=== PATIENT | female | born 1940 | race Caucasian/White ===

== ENCOUNTER → 2016-05-17 | Outpatient (CLI) | payer BC ==
[~2016-05-17] MED LIST: CYMBALTA30 MG; HYDROXYCHLOROQ200 MG; PREMARIN0.3 MG; SYNTHROID0.137 MG PO; TRAMADOL HYDRO200 MG; TRAZODONE50 MG
== END ==
LOC: LAB 13:59
DX: I15.8 Other secondary hypertension (principal)

== ENCOUNTER → 2016-07-25 | Outpatient (CLI) | payer BC ==
[2011-12-04 14:00] VITALS: BP 187/83
== END ==
LOC: LAB 15:33
DX: G25.0 Essential tremor (principal); I15.0 Renovascular hypertension; M34.1 CR(E)ST syndrome; R20.2 Paresthesia of skin; E03.4 Atrophy of thyroid (acquired)

== ENCOUNTER → 2016-11-18 | Outpatient (CLI) | payer BC ==
[2011-12-04 14:00] VITALS: BP 187/83
== END ==
LOC: LAB 09:48
DX: I73.00 Raynaud's syndrome without gangrene (principal); E87.6 Hypokalemia

== ENCOUNTER → 2016-12-11 | Outpatient (CLI) | payer BC ==
[2011-12-04 14:00] VITALS: BP 187/83
== END ==
LOC: RAD 13:43
DX: M19.011 Primary osteoarthritis, right shoulder (principal); M19.012 Primary osteoarthritis, left shoulder

== ENCOUNTER → 2017-01-30 | Outpatient (CLI) | payer BC ==
[2011-12-04 14:00] VITALS: BP 187/83
[2017-01-30 14:51] LABS: EOS # 0.2 (0.04-0.40); EOS % 3.7 % (1.0-5.0); HEMATOCRIT 42.4 % (37.0-47.0); LYMPH# 1.6 (1.50-4.00); MEAN CELL VOLUME 87 fl (78-100); MEAN CORPUSCULAR HEMOGLOBIN 29 pg (27-31); MEAN CORPUSCULAR HGB CONC 33 g/dL (33-37); MEAN PLATELET VOLUME 11.1 fl (7.4-10.4); MONO # 0.6 (0.20-0.80); NEU # 3.3 (1.40-6.50); PLATELET COUNT 252 K/mm3 (130-400); RED BLOOD COUNT 4.89 M/mm3 (4.10-5.30); RED CELL DISTRIBUTION WIDTH 14.6 % (11.5-14.5); WHITE BLOOD COUNT 5.7 K/mm3 (4.8-10.8)
[2017-01-30 15:06] LABS: BUN/CREATININE RATIO 14.2 (6.0-26.0); CALCIUM 9.5 mg/dL (8.4-10.2); TOTAL BILIRUBIN 0.8 mg/dL (0.2-1.3); TOTAL PROTEIN 7.3 g/dL (6.3-8.2)
[2017-01-30 16:03] LABS: ERYTHROCYTE SEDIMENTATION RATE 16 mm/hr (0-30)
== END ==
LOC: LAB 14:25
PROVIDERS: Internal Medicine
DX: I15.0 Renovascular hypertension (principal); K90.89 Other intestinal malabsorption; E78.2 Mixed hyperlipidemia; M34.1 CR(E)ST syndrome; R20.2 Paresthesia of skin; E03.4 Atrophy of thyroid (acquired)

== ENCOUNTER → 2017-02-05 | Outpatient (CLI) | payer BC ==
[2011-12-04 14:00] VITALS: BP 187/83
== END ==
LOC: LAB 13:54
DX: E78.2 Mixed hyperlipidemia (principal); Z12.11 Encounter for screening for malignant neoplasm of colon; M34.1 CR(E)ST syndrome; K90.89 Other intestinal malabsorption

== ENCOUNTER → 2017-04-03 | Outpatient (CLI) | payer BC ==
[2011-12-04 14:00] VITALS: BP 187/83
== END ==
LOC: LAB 10:30
PROVIDERS: Internal Medicine
DX: E03.4 Atrophy of thyroid (acquired) (principal); K90.89 Other intestinal malabsorption

== ENCOUNTER → 2017-05-16 | Outpatient (CLI) | payer BC ==
[2011-12-04 14:00] VITALS: BP 187/83
== END ==
LOC: LAB 13:26
PROVIDERS: Internal Medicine
DX: E03.4 Atrophy of thyroid (acquired) (principal); K90.89 Other intestinal malabsorption

== ENCOUNTER → 2017-05-29 | Outpatient (CLI) | payer BC ==
[2011-12-04 14:00] VITALS: BP 187/83
[2017-05-29 13:48] LABS: BUN/CREATININE RATIO 15.8 (6.0-26.0); CALCIUM 8.9 mg/dL (8.4-10.2); POTASSIUM 4.5 mmol/L (3.6-5.0)
== END ==
LOC: LAB 13:21
PROVIDERS: Internal Medicine
DX: E87.1 Hypo-osmolality and hyponatremia (principal); I73.00 Raynaud's syndrome without gangrene

== ENCOUNTER → 2017-11-19 | Outpatient (CLI) | payer BC ==
[2011-12-04 14:00] VITALS: BP 187/83
== END ==
LOC: RAD 08:39
DX: G31.89 Other specified degenerative diseases of nervous system (principal); I67.89 Other cerebrovascular disease; R20.2 Paresthesia of skin
CPT/HCPCS: A9585

== ENCOUNTER → 2017-11-25 | Outpatient (CLI) | payer BC ==
[2011-12-04 14:00] VITALS: BP 187/83
== END ==
LOC: LAB 14:20
DX: E24.8 Other Cushing's syndrome (principal)

== ENCOUNTER → 2018-01-14 | Outpatient (CLI) | payer BC ==
[2011-12-04 14:00] VITALS: BP 187/83
[2018-01-14 15:18] LABS: CALCIUM 9.3 mg/dL (8.4-10.2); POTASSIUM 3.9 mmol/L (3.6-5.0)
[2018-01-15 00:02] LABS: CREATININE OTHER SOURCE 66 mg/dL (())
== END ==
LOC: LAB 14:03
PROVIDERS: Internal Medicine
DX: I73.00 Raynaud's syndrome without gangrene (principal); E87.1 Hypo-osmolality and hyponatremia

== ENCOUNTER → 2018-04-20 | Outpatient (CLI) | payer BC ==
[2011-12-04 14:00] VITALS: BP 187/83
== END ==
LOC: RAD 12:56
DX: R51 Headache (principal)

== ENCOUNTER 2018-06-10 13:00 | Outpatient (RCR) | payer BC ==
[2011-12-04 14:00] VITALS: BP 187/83
== END 2018-07-12 | disposition still patient (30) ==
LOC: PT
DX: M21.372 Foot drop, left foot (principal); R26.0 Ataxic gait

== ENCOUNTER → 2018-09-17 | Outpatient (CLI) | payer BC ==
[2011-12-04 14:00] VITALS: BP 187/83
[2018-09-17 15:51] LABS: URINE APPEARANCE HAZY; URINE BILIRUBIN NEGATIVE (NEGATIVE); URINE BLOOD NEGATIVE (NEGATIVE); URINE COLOR YELLOW; URINE GLUCOSE NEGATIVE (NEGATIVE); URINE KETONE NEGATIVE (NEGATIVE); URINE LEUKOCYTE ESTERASE NEGATIVE (NEGATIVE); URINE NITRATE NEGATIVE (NEGATIVE); URINE PROTEIN(semi-quant) TRACE mg/dL (NEGATIVE); URINE UROBILINOGEN NORMAL (NORMAL)
== END ==
LOC: LAB 14:59
PROVIDERS: Internal Medicine
DX: M65.9 Synovitis and tenosynovitis, unspecified (principal); R30.0 Dysuria

== ENCOUNTER → 2018-09-24 | Outpatient (CLI) | payer BC ==
[2011-12-04 14:00] VITALS: BP 187/83
[2018-09-24 14:20] LABS: CALCIUM 9.4 mg/dL (8.3-10.5); POTASSIUM 4.1 mmol/L (3.5-5.1)
== END ==
LOC: RAD 13:11
PROVIDERS: Internal Medicine
DX: M34.1 CR(E)ST syndrome (principal); G50.1 Atypical facial pain; R32 Unspecified urinary incontinence; G91.2 (Idiopathic) normal pressure hydrocephalus; R26.0 Ataxic gait; H57.10 Ocular pain, unspecified eye
CPT/HCPCS: A9585

== ENCOUNTER → 2019-01-13 | Outpatient (CLI) | payer BC ==
[2011-12-04 14:00] VITALS: BP 187/83
[2019-01-13 12:02] LABS: CALCIUM 9.4 mg/dL (8.3-10.5); POTASSIUM 4.2 mmol/L (3.5-5.1)
== END ==
LOC: LAB 11:11
PROVIDERS: Internal Medicine Nephrology
DX: I15.8 Other secondary hypertension (principal); E87.1 Hypo-osmolality and hyponatremia

== ENCOUNTER → 2020-01-20 | Outpatient (CLI) | payer BC ==
[2011-12-04 14:00] VITALS: BP 187/83
[2020-01-20 15:41] LABS: POTASSIUM 4.1 mmol/L (3.5-5.1)
[2020-01-20 15:43] LABS: CALCIUM 8.9 mg/dL (8.3-10.5)
[2020-01-20 23:36] LABS: CREATININE OTHER SOURCE 53 mg/dL (())
== END ==
LOC: LAB 15:03
PROVIDERS: Internal Medicine Nephrology
DX: I15.8 Other secondary hypertension (principal); R60.0 Localized edema

== ENCOUNTER → 2020-05-09 | Outpatient (CLI) | payer BC ==
[2011-12-04 14:00] VITALS: BP 187/83
== END ==
LOC: MAMMO 14:27
DX: Z12.31 Encounter for screening mammogram for malignant neoplasm of breast (principal); M85.80 Other specified disorders of bone density and structure, unspecified site

== ENCOUNTER → 2020-09-22 | Outpatient (CLI) | payer BC ==
[2011-12-04 14:00] VITALS: BP 187/83
[2020-09-22 14:46] LABS: BASO # 0.02 (0.02-0.10); EOS # 0.84 (0.04-0.40); HEMATOCRIT 42.2 % (37.0-47.0); HEMOGLOBIN 13.8 g/dL (12.5-16.0); MEAN CELL VOLUME 90 fl (78-100); MEAN CORPUSCULAR HEMOGLOBIN 29 pg (27-31); MEAN CORPUSCULAR HGB CONC 33 g/dL (33-37); MONO # 0.66 (0.20-0.80); NEU # 3.01 (1.40-6.50); PLATELET COUNT 258 K/mm3 (130-400); RED CELL DISTRIBUTION WIDTH 13.1 % (11.5-14.5); WHITE BLOOD COUNT 6.4 K/mm3 (4.8-10.8)
[2020-09-22 15:18] LABS: ALBUMIN 3.9 g/dL (3.4-4.8); POTASSIUM 4.2 mmol/L (3.5-5.1)
[2020-09-22 15:20] LABS: TOTAL PROTEIN 6.9 g/dL (6.2-8.1)
[2020-09-22 15:22] LABS: TOTAL BILIRUBIN 0.7 mg/dL (0.2-1.2)
[2020-09-22 15:27] LABS: MAGNESIUM 1.93 mg/dL (1.60-2.60)
== END ==
LOC: LAB 14:27
PROVIDERS: Internal Medicine
DX: I15.0 Renovascular hypertension (principal); K90.9 Intestinal malabsorption, unspecified

== ENCOUNTER → 2020-09-25 | Outpatient (CLI) | payer BC ==
[2020-09-25 14:34] LABS: D-DIMER 0.61 mg/L FEU (0.15-0.50)
== END ==
LOC: LAB 13:20 → RAD 13:20
PROVIDERS: Internal Medicine
DX: K80.20 Calculus of gallbladder without cholecystitis without obstruction (principal); J98.4 Other disorders of lung
CPT/HCPCS: Q9967

== ENCOUNTER → 2021-02-06 | Outpatient (CLI) | payer BC | LOC: LAB 19:02 | DX: Z20.822 Contact with and (suspected) exposure to COVID-19 (principal) ==

== ENCOUNTER → 2021-04-09 | Outpatient (CLI) | payer BC | LOC: LAB 10:47 | DX: J01.90 Acute sinusitis, unspecified (principal) ==

== ENCOUNTER → 2021-05-30 | Outpatient (CLI) | payer BC | LOC: LAB 16:27 | DX: H10.31 Unspecified acute conjunctivitis, right eye (principal); Z20.822 Contact with and (suspected) exposure to COVID-19 ==

== ENCOUNTER → 2021-08-02 | Outpatient (CLI) | payer BC | LOC: LAB 15:57 | DX: U07.1 COVID-19 (principal) ==

== ENCOUNTER → 2021-10-11 | Outpatient (CLI) | payer BC ==
[2021-10-11 14:47] LABS: BASO # 0.04 K/mm3 (0.02-0.10); EOS # 0.32 K/mm3 (0.04-0.40); EOS % 4.8 % (1.0-5.0); HEMATOCRIT 39.3 % (37.0-47.0); HEMOGLOBIN 12.9 g/dL (12.5-16.0); LYMPH# 1.93 K/mm3 (1.50-4.00); MEAN CELL VOLUME 90 fl (78-100); MEAN CORPUSCULAR HEMOGLOBIN 30 pg (27-31); MEAN CORPUSCULAR HGB CONC 33 g/dL (33-37); MEAN PLATELET VOLUME 10.3 fl (7.4-10.4); MONO # 0.62 K/mm3 (0.20-0.80); NEU # 3.72 K/mm3 (1.40-6.50); PLATELET COUNT 258 K/mm3 (130-400); RED BLOOD COUNT 4.37 M/mm3 (4.10-5.30); RED CELL DISTRIBUTION WIDTH 13.3 % (11.5-14.5); WHITE BLOOD COUNT 6.6 K/mm3 (4.8-10.8)
[2021-10-11 16:07] LABS: POTASSIUM 4.3 mmol/L (3.5-5.1)
[2021-10-11 16:08] LABS: CALCIUM 9.5 mg/dL (8.3-10.5)
[2021-10-11 16:09] LABS: TOTAL PROTEIN 6.9 g/dL (6.2-8.1)
[2021-10-11 16:10] LABS: ERYTHROCYTE SEDIMENTATION RATE 24 mm/hr (0-30)
[2021-10-11 16:11] LABS: TOTAL BILIRUBIN 0.7 mg/dL (0.2-1.2)
== END ==
LOC: LAB 14:30
PROVIDERS: Internal Medicine
DX: K90.9 Intestinal malabsorption, unspecified (principal); E03.4 Atrophy of thyroid (acquired); M34.1 CR(E)ST syndrome; E78.2 Mixed hyperlipidemia

== ENCOUNTER → 2022-05-02 | Outpatient (CLI) | payer BC ==
[2022-05-02 09:08] LABS: BASO # 0.03 K/mm3 (0.02-0.10); EOS # 0.23 K/mm3 (0.04-0.40); EOS % 4.4 % (1.0-5.0); HEMATOCRIT 41.9 % (37.0-47.0); HEMOGLOBIN 13.7 g/dL (12.5-16.0); MEAN CELL VOLUME 92 fl (78-100); MEAN CORPUSCULAR HEMOGLOBIN 30 pg (27-31); MEAN CORPUSCULAR HGB CONC 33 g/dL (33-37); MEAN PLATELET VOLUME 10.9 fl (7.4-10.4); MONO # 0.42 K/mm3 (0.20-0.80); PLATELET COUNT 226 K/mm3 (130-400); RED BLOOD COUNT 4.57 M/mm3 (4.10-5.30); RED CELL DISTRIBUTION WIDTH 13.6 % (11.5-14.5); WHITE BLOOD COUNT 5.2 K/mm3 (4.8-10.8)
[2022-05-02 09:16] LABS: ALBUMIN 3.7 g/dL (3.4-4.8)
[2022-05-02 09:17] LABS: CALCIUM 9.4 mg/dL (8.3-10.5)
[2022-05-02 09:18] LABS: TOTAL PROTEIN 6.4 g/dL (6.2-8.1)
[2022-05-02 09:20] LABS: TOTAL BILIRUBIN 0.8 mg/dL (0.2-1.2)
[2022-05-02 10:46] LABS: ERYTHROCYTE SEDIMENTATION RATE 13 mm/hr (0-30)
== END ==
LOC: LAB 08:40
PROVIDERS: Internal Medicine
DX: K90.9 Intestinal malabsorption, unspecified (principal); E03.4 Atrophy of thyroid (acquired); M34.1 CR(E)ST syndrome; E78.2 Mixed hyperlipidemia

== ENCOUNTER → 2022-07-16 | Outpatient (CLI) | payer BC ==
[2022-07-16 16:53] LABS: URINE APPEARANCE CLEAR; URINE COLOR YELLOW
[2022-07-16 16:54] LABS: CLUE CELLS NOT OBSERVED (Not Observd); URINE BILIRUBIN NEGATIVE (NEGATIVE); URINE BLOOD NEGATIVE (NEGATIVE); URINE GLUCOSE NEGATIVE (NEGATIVE); URINE KETONE NEGATIVE (NEGATIVE); URINE LEUKOCYTE ESTERASE 1+ (NEGATIVE); URINE MUCUS PRESENT (NOT PRESENT); URINE NITRATE NEGATIVE (NEGATIVE); URINE PROTEIN(semi-quant) 1+ (NEGATIVE); URINE UROBILINOGEN NORMAL (NORMAL)
== END ==
LOC: LAB 16:06
PROVIDERS: Nurse Practitioner Family
DX: N89.8 Other specified noninflammatory disorders of vagina (principal)
CPT/HCPCS: Q0111

== ENCOUNTER → 2023-01-15 | Outpatient (CLI) | payer BC ==
[2023-01-15 14:04] LABS: POTASSIUM 4.2 mmol/L (3.5-5.1)
[2023-01-15 14:06] LABS: CALCIUM 9.4 mg/dL (8.3-10.5)
[2023-01-15 21:48] LABS: CREATININE OTHER SOURCE 24 mg/dL (63-166)
== END ==
LOC: LAB 13:40
PROVIDERS: Internal Medicine Nephrology
DX: E87.1 Hypo-osmolality and hyponatremia (principal); E87.6 Hypokalemia

== ENCOUNTER → 2023-01-23 | Outpatient (CLI) | payer BC ==
[2023-01-23 13:47] LABS: BASO # 0.02 K/mm3 (0.02-0.10); HEMATOCRIT 43.6 % (37.0-47.0); HEMOGLOBIN 14.3 g/dL (12.5-16.0); LYMPH# 1.74 K/mm3 (1.50-4.00); MEAN CELL VOLUME 91 fl (78-100); MEAN CORPUSCULAR HEMOGLOBIN 30 pg (27-31); MEAN CORPUSCULAR HGB CONC 33 g/dL (33-37); MEAN PLATELET VOLUME 10.5 fl (7.4-10.4); MONO # 0.59 K/mm3 (0.20-0.80); NEU # 4.08 K/mm3 (1.40-6.50); PLATELET COUNT 235 K/mm3 (130-400); RED BLOOD COUNT 4.81 M/mm3 (4.10-5.30); RED CELL DISTRIBUTION WIDTH 14.2 % (11.5-14.5); WHITE BLOOD COUNT 6.6 K/mm3 (4.8-10.8)
[2023-01-23 13:58] LABS: ALBUMIN 4.4 g/dL (3.4-4.8); POTASSIUM 4.5 mmol/L (3.5-5.1); SODIUM 138 mmol/L (136-145)
[2023-01-23 13:59] LABS: CALCIUM 9.9 mg/dL (8.3-10.5)
[2023-01-23 14:00] LABS: GLUCOSE 103 mg/dL (65-105); TOTAL PROTEIN 7.4 g/dL (6.2-8.1)
[2023-01-23 14:01] LABS: CARBON DIOXIDE 25 mmol/L (23-31)
[2023-01-23 14:06] LABS: AST-SGOT 22 U/L (5-34)
[2023-01-23 14:07] LABS: ALT/SGPT 15 U/L (0-55)
[2023-01-23 14:20] LABS: TROPONIN-I < 0.030 ng/mL (<0.030)
== END ==
LOC: RAD 13:21
PROVIDERS: Nurse Practitioner Family
DX: R07.89 Other chest pain (principal); I44.4 Left anterior fascicular block; R91.8 Other nonspecific abnormal finding of lung field

== ENCOUNTER → 2023-05-14 | Outpatient (CLI) | payer BC | LOC: LAB 10:40 | PROVIDERS: Registered Nurse | DX: E87.1 Hypo-osmolality and hyponatremia (principal); E87.6 Hypokalemia ==

== ENCOUNTER → 2023-07-24 | Outpatient (CLI) | payer BC ==
[2023-07-24 12:30] LABS: BASO # 0.03 K/mm3 (0.02-0.10); EOS # 0.21 K/mm3 (0.04-0.40); EOS % 2.7 % (1.0-5.0); HEMOGLOBIN 13.2 g/dL (12.5-16.0); LYMPH# 1.63 K/mm3 (1.50-4.00); MEAN CELL VOLUME 93 fl (78-100); MEAN CORPUSCULAR HEMOGLOBIN 31 pg (27-31); MEAN CORPUSCULAR HGB CONC 33 g/dL (33-37); MONO # 0.66 K/mm3 (0.20-0.80); NEU # 5.19 K/mm3 (1.40-6.50); PLATELET COUNT 282 K/mm3 (130-400); RED BLOOD COUNT 4.29 M/mm3 (4.10-5.30); WHITE BLOOD COUNT 7.7 K/mm3 (4.8-10.8)
[2023-07-24 12:37] LABS: ALBUMIN 4.5 g/dL (3.4-4.8)
[2023-07-24 12:38] LABS: CALCIUM 10.5 mg/dL (8.3-10.5)
[2023-07-24 12:41] LABS: TOTAL BILIRUBIN 0.7 mg/dL (0.2-1.2)
[2023-07-24 12:46] LABS: MAGNESIUM 1.99 mg/dL (1.60-2.60)
== END ==
LOC: LAB 12:05
PROVIDERS: Internal Medicine
DX: I15.0 Renovascular hypertension (principal); E03.4 Atrophy of thyroid (acquired); K90.9 Intestinal malabsorption, unspecified

== ENCOUNTER → 2023-12-09 | Outpatient (CLI) | payer BC ==
[2023-12-09 10:28] LABS: URINE APPEARANCE SLIGHTLY CLOUDY (CLEAR); URINE COLOR YELLOW (YELLOW)
[2023-12-09 10:29] LABS: URINE BILIRUBIN 1+ (NEGATIVE); URINE BLOOD NEGATIVE (NEGATIVE); URINE GLUCOSE NEGATIVE (NEGATIVE); URINE KETONE TRACE (NEGATIVE); URINE LEUKOCYTE ESTERASE 1+ (NEGATIVE); URINE MUCUS PRESENT (NOT PRESENT); URINE NITRATE NEGATIVE (NEGATIVE); URINE PROTEIN(semi-quant) NEGATIVE (NEGATIVE); URINE WBC >50 /hpf (0-3)
== END ==
LOC: LAB 09:18
PROVIDERS: Internal Medicine
DX: M51.36 Other intervertebral disc degeneration, lumbar region (principal); K80.20 Calculus of gallbladder without cholecystitis without obstruction; M25.551 Pain in right hip; M25.552 Pain in left hip; N39.0 Urinary tract infection, site not specified

== ENCOUNTER → 2023-12-19 | Outpatient (CLI) | payer BC ==
[2023-12-19 15:59] LABS: BASO # 0.03 K/mm3 (0.02-0.10); EOS # 0.02 K/mm3 (0.04-0.40); EOS % 0.2 % (1.0-5.0); HEMOGLOBIN 12.7 g/dL (12.5-16.0); LYMPH# 0.76 K/mm3 (1.50-4.00); MEAN CELL VOLUME 94 fl (78-100); MEAN CORPUSCULAR HEMOGLOBIN 31 pg (27-31); MEAN CORPUSCULAR HGB CONC 33 g/dL (33-37); MEAN PLATELET VOLUME 8.9 fl (7.4-10.4); MONO # 0.61 K/mm3 (0.20-0.80); NEU # 8.43 K/mm3 (1.40-6.50); PLATELET COUNT 317 K/mm3 (130-400); RED BLOOD COUNT 4.04 M/mm3 (4.10-5.30); RED CELL DISTRIBUTION WIDTH 14.1 % (11.5-14.5)
[2023-12-19 16:10] LABS: ALBUMIN 4.1 g/dL (3.4-4.8)
[2023-12-19 16:11] LABS: TOTAL PROTEIN 6.9 g/dL (6.2-8.1)
[2023-12-19 16:12] LABS: CALCIUM 9.5 mg/dL (8.3-10.5)
[2023-12-19 16:13] LABS: TOTAL BILIRUBIN 0.7 mg/dL (0.2-1.2)
== END ==
LOC: LAB 15:43
PROVIDERS: Nurse Practitioner Family
DX: R53.83 Other fatigue (principal)

== ENCOUNTER → 2024-01-30 | Outpatient (CLI) | payer BC ==
[2024-01-30 11:57] LABS: BASO # 0.03 K/mm3 (0.02-0.10); EOS # 0.05 K/mm3 (0.04-0.40); EOS % 0.4 % (1.0-5.0); HEMATOCRIT 42.3 % (37.0-47.0); HEMOGLOBIN 13.7 g/dL (12.5-16.0); LYMPH# 1.16 K/mm3 (1.50-4.00); MEAN CELL VOLUME 96 fl (78-100); MEAN CORPUSCULAR HEMOGLOBIN 31 pg (27-31); MEAN CORPUSCULAR HGB CONC 32 g/dL (33-37); MEAN PLATELET VOLUME 9.1 fl (7.4-10.4); MONO # 0.46 K/mm3 (0.20-0.80); NEU # 9.56 K/mm3 (1.40-6.50); PLATELET COUNT 301 K/mm3 (130-400); RED BLOOD COUNT 4.41 M/mm3 (4.10-5.30); WHITE BLOOD COUNT 11.4 K/mm3 (4.8-10.8)
[2024-01-30 12:04] LABS: ALBUMIN 4.4 g/dL (3.4-4.8)
[2024-01-30 12:07] LABS: TOTAL PROTEIN 7.3 g/dL (6.2-8.1)
[2024-01-30 12:09] LABS: TOTAL BILIRUBIN 1.1 mg/dL (0.2-1.2)
[2024-01-30 12:13] LABS: MAGNESIUM 2.25 mg/dL (1.60-2.60)
== END ==
LOC: LAB 11:32
PROVIDERS: Internal Medicine
DX: I15.0 Renovascular hypertension (principal); K90.9 Intestinal malabsorption, unspecified

== ENCOUNTER → 2024-05-07 | Outpatient (CLI) | payer BC ==
[2024-05-07 12:08] LABS: BASO # 0.03 K/mm3 (0.02-0.10); EOS # 0.14 K/mm3 (0.04-0.40); EOS % 2.1 % (1.0-5.0); HEMATOCRIT 41.5 % (37.0-47.0); HEMOGLOBIN 13.5 g/dL (12.5-16.0); LYMPH# 1.34 K/mm3 (1.50-4.00); MEAN CELL VOLUME 99 fl (78-100); MEAN CORPUSCULAR HEMOGLOBIN 32 pg (27-31); MEAN CORPUSCULAR HGB CONC 33 g/dL (33-37); MEAN PLATELET VOLUME 9.8 fl (7.4-10.4); MONO # 0.72 K/mm3 (0.20-0.80); NEU # 4.31 K/mm3 (1.40-6.50); PLATELET COUNT 317 K/mm3 (130-400); RED CELL DISTRIBUTION WIDTH 13.3 % (11.5-14.5); WHITE BLOOD COUNT 6.6 K/mm3 (4.8-10.8)
[2024-05-07 12:15] LABS: ALBUMIN 4.1 g/dL (3.4-4.8)
[2024-05-07 12:16] LABS: CALCIUM 9.5 mg/dL (8.3-10.5)
[2024-05-07 12:19] LABS: TOTAL BILIRUBIN 0.9 mg/dL (0.2-1.2)
== END ==
LOC: LAB 11:43
PROVIDERS: Internal Medicine
DX: M85.89 Other specified disorders of bone density and structure, multiple sites (principal); M34.1 CR(E)ST syndrome

== ENCOUNTER → 2024-07-15 | Outpatient (CLI) | payer BC ==
[2024-07-15 11:53] LABS: ALBUMIN 4.1 g/dL (3.4-4.8)
[2024-07-15 11:54] LABS: CALCIUM 9.5 mg/dL (8.3-10.5)
[2024-07-15 11:55] LABS: TOTAL PROTEIN 6.9 g/dL (6.2-8.1)
[2024-07-15 11:57] LABS: TOTAL BILIRUBIN 0.6 mg/dL (0.2-1.2)
[2024-07-15 12:02] LABS: MAGNESIUM 1.98 mg/dL (1.60-2.60)
[2024-07-15 22:43] LABS: CREATININE OTHER SOURCE 38 mg/dL (63-166)
== END ==
LOC: LAB 09:51
PROVIDERS: Internal Medicine Nephrology
DX: E78.1 Pure hyperglyceridemia (principal); E87.6 Hypokalemia

== ENCOUNTER → 2024-07-17 | Outpatient (REF) | payer BC ==
[2024-07-17 09:53] LABS: BASO # 0.02 K/mm3 (0.02-0.10); EOS # 0.19 K/mm3 (0.04-0.40); EOS % 3.8 % (1.0-5.0); HEMATOCRIT 41.6 % (37.0-47.0); HEMOGLOBIN 13.7 g/dL (12.5-16.0); LYMPH# 1.52 K/mm3 (1.50-4.00); MEAN CELL VOLUME 95 fl (78-100); MEAN CORPUSCULAR HEMOGLOBIN 31 pg (27-31); MEAN CORPUSCULAR HGB CONC 33 g/dL (33-37); MEAN PLATELET VOLUME 10.3 fl (7.4-10.4); MONO # 0.59 K/mm3 (0.20-0.80); NEU # 2.72 K/mm3 (1.40-6.50); PLATELET COUNT 317 K/mm3 (130-400); RED CELL DISTRIBUTION WIDTH 14.1 % (11.5-14.5); WHITE BLOOD COUNT 5.1 K/mm3 (4.8-10.8)
== END ==
LOC: LAB 09:36
PROVIDERS: Internal Medicine
DX: I15.0 Renovascular hypertension (principal); M85.89 Other specified disorders of bone density and structure, multiple sites; M34.1 CR(E)ST syndrome; E03.4 Atrophy of thyroid (acquired); E78.2 Mixed hyperlipidemia